=== PATIENT | female | born 1985 | race African-American/Black ===

== ENCOUNTER 2018-06-08 21:09 | Emergency (ER) | payer OTHER ==
[~2018-06-08] VITALS: Ht 149.9 cm; Wt 74.1 kg
[2018-06-08] MEDS ORDERED: HYDR12CA (21:27)
[2018-06-08] MEDS ORDERED: LORA-243 (21:27)
[2018-06-08] MEDS ORDERED: LISI-538 (21:27)
[2018-06-08] MEDS ORDERED: FLUTISP (21:27)
[2018-06-08] MEDS ORDERED: GOOD1POW4 PO (21:33)
[2018-06-08 21:52] LABS: BASO # 0.1 10^3/uL (0.0-0.2); BASO % 0.7 % (0.0-1.0); EOS # 0.1 10^3/uL (0.0-0.50); EOS % 0.7 % (0.0-3.0); HEMATOCRIT 37.1 % (36.0-47.0); HEMOGLOBIN 11.9 g/dl (12.0-15.5); LYMPH # 2.8 10^3/uL (1.5-4.5); LYMPH % 38.1 % (24.0-44.0); MEAN CORPUSCULAR HEMOGLOBIN 26.3 pg (27.0-33.0); MEAN CORPUSCULAR HGB CONC 32.1 g/dl (32.0-36.5); MEAN CORPUSCULAR VOLUME 82.1 fl (80.0-96.0); MONO # 0.5 10^3/uL (0.0-0.8); MONO % 6.3 % (0.0-5.0); NEUTROPHILS # 3.9 10^3/uL (1.8-7.7); NEUTROPHILS % 53.9 % (36.0-66.0); PLATELET COUNT, AUTOMATED 330 10^3/uL (150-450); RED BLOOD COUNT 4.52 10^6/uL (4.00-5.40); WHITE BLOOD COUNT 7.3 10^3/uL (4.0-10.0)
[2018-06-08 22:09] LABS: HCG, SERUM QUALITATIVE NEGATIVE (NEGATIVE)
[2018-06-08] MEDS ORDERED: amLODIPine 5 MG TAB PO ONE (22:15)
[2018-06-08 22:19] LABS: ALBUMIN 4.3 GM/DL (3.2-5.2); ALT/SGPT 21 U/L (12-78); BILIRUBIN,TOTAL 0.3 MG/DL (0.2-1.0); BLOOD UREA NITROGEN 11 MG/DL (7-18); CALCIUM LEVEL 9.4 MG/DL (8.5-10.1); CARBON DIOXIDE LEVEL 25 MEQ/L (21-32); CHLORIDE LEVEL 102 MEQ/L (98-107); CREATININE FOR GFR 0.68 MG/DL (0.55-1.30); GLOMERULAR FILTRATION RATE > 60.0 (>60); GLUCOSE, FASTING 87 MG/DL (70-100); POTASSIUM SERUM 3.4 MEQ/L (3.5-5.1); SODIUM LEVEL 137 MEQ/L (136-145); TOTAL PROTEIN 7.8 GM/DL (6.4-8.2)
[2018-06-08 22:48] LABS: APPEARANCE, URINE CLEAR (CLEAR); BACTERIA, URINE AUTO NEGATIVE (NEGATIVE); BILIRUBIN, URINE AUTO NEGATIVE (NEGATIVE); BLOOD, URINE BLOOD NEGATIVE (NEGATIVE); COLOR, URINE STRAW (YELLOW); GLUCOSE, URINE (UA) AUTO NEGATIVE (NEGATIVE); KETONE, URINE AUTO NEGATIVE (NEGATIVE); LEUKOCYTE ESTERASE, URINE AUTO NEGATIVE (NEGATIVE); NITRITE, URINE AUTO NEGATIVE (NEGATIVE); PROTEIN, URINE AUTO NEGATIVE (NEGATIVE); RBC, URINE AUTO 1 /HPF (0-3); SPECIFIC GRAVITY URINE AUTO 1.012 (1.002-1.035); SQUAMOUS EPITHELIAL CELL UR AU 1 /HPF (0-6); UROBILINOGEN, URINE AUTO 0.2 mg/dL (0.0-2.0); WBC, URINE AUTO 0 /HPF (0-3)
--- NOTE | 2018-06-08 22:48 | REPVR ---
EXAM: CT Head Without Contrast EXAM DATE/TIME: 06/08/2018 10:25 PM CLINICAL HISTORY: 33 years old, female; Pain; Headache; Headache not specified; Additional info: Headache, HTN TECHNIQUE: Axial computed tomography images of the head/brain without contrast. All CT scans at this facility use at least one of these dose optimization techniques: automated exposure control; mA and/or kV adjustment per patient size (includes targeted exams where dose is matched to clinical indication); or iterative reconstruction. COMPARISON: No relevant prior studies available. FINDINGS: Brain: There is no evidence of intracranial bleed. The johnson-white differentiation appears preserved. Ventricles: Normal appearing ventricles. Bones/joints: Normal. No acute fracture. Sinuses: Clear paranasal sinuses. Mastoid air cells: Clear but large mastoid air cells. Soft tissues: Normal. IMPRESSION: No evidence of bleed. No evidence of mass effect. Electronically signed by: Ken Chen On 06/08/2018 22:48:25 PM
[2018-06-08 23:30] VITALS: BP 146/95
[2018-06-08] MEDS ORDERED: NORV5TAB PO ×2 (23:34→23:43)
--- NOTE | 2018-06-09 05:27 | ECGEPIP ---
Stationary ECG Study [facility] - ED Test Date: 2018-06-08 Pat Name: CYNTHIA HERCULES Department: Room: - Gender: F Right Of Way Agent: vicky : 1985 Requested By: DONNELL Wright Order Number: [id number] Reading MD: Francesco Kang Measurements Intervals [place] Rate: 79 P: 28 UT: 165 QRS: 18 QRSD: 95 T: 19 QT: 353 QTc: 405 Interpretive Statements SINUS RHYTHM NONSPECIFIC T-WAVE ABNORMALITY NO PRIORS FOR COMPARISON Electronically Signed On 06-09-2018 5:27:10 EST by Francesco Kang
== END 2018-06-08 23:46 | disposition home or self-care (01) ==
LOC: M ED 21:09
DX: I10 Essential (primary) hypertension (principal); Z79.899 Other long term (current) drug therapy

== ENCOUNTER 2018-06-19 00:12 | Emergency (ER) | payer OTHER ==
[~2018-06-19] VITALS: Ht 149.9 cm; Wt 72.7 kg
[~2018-06-19 00:12] MED LIST: FLUTISP; GOOD1POW4 PO; HYDR12CA; LISI-538; LORA-243; NORV5TAB PO
[2018-06-19] MEDS ORDERED: KETOROLAC 30 MG/ML VIAL (J1885) IV ONE (00:45)
[2018-06-19] MEDS ORDERED: ONDANSETRON 4MG/2ML VIAL (J2405) IV ONE (00:45)
[2018-06-19 00:53] LABS: BASO # 0.1 10^3/uL (0.0-0.2); BASO % 0.8 % (0.0-1.0); EOS # 0.1 10^3/uL (0.0-0.50); EOS % 1.2 % (0.0-3.0); HEMATOCRIT 38.3 % (36.0-47.0); HEMOGLOBIN 12.2 g/dl (12.0-15.5); LYMPH # 2.9 10^3/uL (1.5-4.5); LYMPH % 48.2 % (24.0-44.0); MEAN CORPUSCULAR HEMOGLOBIN 26.5 pg (27.0-33.0); MEAN CORPUSCULAR HGB CONC 31.9 g/dl (32.0-36.5); MEAN CORPUSCULAR VOLUME 83.3 fl (80.0-96.0); MONO # 0.7 10^3/uL (0.0-0.8); MONO % 10.9 % (0.0-5.0); NEUTROPHILS # 2.4 10^3/uL (1.8-7.7); NEUTROPHILS % 38.7 % (36.0-66.0); PLATELET COUNT, AUTOMATED 381 10^3/uL (150-450); WHITE BLOOD COUNT 6.1 10^3/uL (4.0-10.0)
[2018-06-19 01:24] LABS: ALBUMIN 4.4 GM/DL (3.2-5.2); ALT/SGPT 18 U/L (12-78); BILIRUBIN,TOTAL 0.2 MG/DL (0.2-1.0); BLOOD UREA NITROGEN 15 MG/DL (7-18); C REACTIVE PROTEIN QUANTITATIV 0.33 MG/DL (0.00-0.30); CARBON DIOXIDE LEVEL 24 MEQ/L (21-32); CHLORIDE LEVEL 103 MEQ/L (98-107); GLOMERULAR FILTRATION RATE > 60.0 (>60); GLUCOSE, FASTING 98 MG/DL (70-100); HCG, SERUM QUANTITATIVE < 1.0 MIU/ML; POTASSIUM SERUM 3.9 MEQ/L (3.5-5.1); SODIUM LEVEL 136 MEQ/L (136-145)
[2018-06-19] MEDS ORDERED: ISOVUE-370 76% 100ML VIAL (Q9967) As Ordered ONE (01:40)
--- NOTE | 2018-06-19 02:12 | REPVR ---
EXAM: CT Abdomen and Pelvis With Contrast EXAM DATE/TIME: 06/19/18 (1:51am) CLINICAL HISTORY: 33 year old with bilateral pelvic pain (sudden onset) TECHNIQUE: Axial computed tomography images of the abdomen and pelvis with intravenous contrast. All CT scans at this facility use at least one of these dose optimization techniques: automated exposure control; mA and/or kV adjustment per patient size (includes targeted exams where dose is matched to clinical indication); or iterative reconstruction. Coronal and sagittal reformatted images were created and reviewed. CONTRAST: 100 ml of Iso 370 administered intravenously COMPARISON: No relevant prior studies available FINDINGS: Lower thorax: No acute findings. No pleural effusions. ABDOMEN: Liver: Normal. No solid mass. Gallbladder and bile ducts: Contracted gallbladder. No obvious calcified stones. No ductal dilatation. Pancreas: Normal. No ductal dilatation. Spleen: Normal. No splenomegaly. Adrenals: Normal. No mass. Kidneys and ureters: Normal. No hydronephrosis. Stomach and bowel: Normal. No bowel obstruction. No mucosal thickening. Appendix: No evidence of appendicitis. PELVIS: Bladder: Unremarkable as visualized. Reproductive: Large cystic right pelvic mass (4.5 - 5.5 cm size), centered right of midline, perhaps with thin septations. Fluid: Moderate amount of lower pelvic fluid (fluid CT density = 25 HU) --- perhaps hemorrhagic fluid, eg. ABDOMEN and PELVIS: Intraperitoneal space: Normal. No free air. No significant fluid collection. Bones/joints: No acute fracture nor dislocation. Soft tissues: Unremarkable. Vasculature: Normal. No abdominal aortic aneurysm. Lymph nodes: Normal. No enlarged lymph nodes. IMPRESSION: No acute bowel pathology. No hydronephrosis. Large, probably septated, right-sided cystic pelvic mass --- probable septated right ovarian cyst --- perhaps a large hemorrhagic cyst. Moderate amount of lower pelvic fluid, perhaps hemorrhagic fluid (fluid is slightly hyperdense, with CT density = 25 HU). Follow-up evaluation with pelvic ultrasound is suggested. Electronically signed by: Philly Pack On 06/19/2018 02:12:23 AM
[2018-06-19 02:56] VITALS: BP 133/88
--- NOTE | 2018-06-19 03:19 | REPVR ---
EXAM: US Pelvis Complete (transabdominal) EXAM DATE/TIME: 06/19/18 (2:52 am) CLINICAL HISTORY: 33 year old female with pelvic pain. Possible ruptured ovarian cyst on recent CT scan. Evaluate blood flow. TECHNIQUE: Real-time transabdominal pelvic ultrasound with image documentation. Complete examination. COMPARISON: CT ABDOMEN PELVIS of 06/19/18 FINDINGS: The LMP is not provided. The uterus is anteverted, measuring 10.8 x 4.4 x 6.5 cm in dimensions. No uterine mass is seen. The endometrium measures 6 mm in thickness The right ovary measures 6.0 x 4.5 x 5.6 cm in size. Septated right ovarian cyst (4.2 x 3.2 x 4.6 cm size). The left ovary measures 3.7 x 1.9 x 2.4 cm in size. There is no evidence of ovarian torsion on Doppler evaluation. No solid adnexal masses. IMPRESSION: No evidence of ovarian torsion. Large septated right ovarian cyst (4.0 cm avg. size). Electronically signed by: Philly Pack On 06/19/2018 03:19:02 AM
[2018-06-19] MEDS ORDERED: OXYCODONE/APAP 5MG/325MG(BULK FOR ED) 1 TABLET PO ONE (03:45)
--- NOTE | 2018-06-19 15:21 | ED PDOC ---
Post-Departure Follow-Up [facility] and [facility] fp faxed formal report of pelvic us and ct abd/p for fu Parker Acosta MD Jun 19, 2018 15:21
== END 2018-06-19 03:39 | disposition home or self-care (01) ==
LOC: M ED 00:12
DX: R10.30 Lower abdominal pain, unspecified (principal); N83.201 Unspecified ovarian cyst, right side; I10 Essential (primary) hypertension; D64.9 Anemia, unspecified; F41.9 Anxiety disorder, unspecified; F32.9 Major depressive disorder, single episode, unspecified; Z79.899 Other long term (current) drug therapy
CPT/HCPCS: 74177; 76856; 80053; 81001; 84702; 85025; 86140; 96374; 96375; 99284; J1885; J2405; Q9967

== ENCOUNTER → 2018-11-29 | Outpatient (CLI) | payer OTHER ==
--- NOTE | 2018-11-29 18:21 | REP ---
ABDOMINAL SERIES: Supine and erect views of the abdomen and pelvis are performed. There is no evidence of free intraperitoneal air and no evidence of small bowel obstruction. No dilated small bowel loops are seen. There is a large phlebolith in the left pelvis. An accompanying view of the chest demonstrates no acute infiltrate in either lung. The heart and mediastinum are within normal limits. IMPRESSION: Negative abdominal series. Electronically Signed by Michelet Huertas MD 11/30/2018 01:54 P
== END ==
LOC: M LRY 16:25
PROVIDERS: ATTEND Family Medicine
DX: R10.32 Left lower quadrant pain (principal)